=== PATIENT | male | born 1945 | race Caucasian/White ===

== ENCOUNTER → 2018-11-02 | Outpatient (CLI) | payer MEDICARE ==
--- NOTE | 2018-11-02 16:41 | US ---
EXAMINATION TYPE: US kidneys/renal and bladder DATE OF EXAM: 11/02/2018 COMPARISON: NONE CLINICAL HISTORY: R10.9 Right flank pain. rt flank pain for awhile EXAM MEASUREMENTS: Right Kidney: 11.4 x 5.2 x 6.0 cm Left Kidney: 10.3 x 4.7 x 6.1 cm Right Kidney: No hydronephrosis or masses seen Left Kidney: 5.9cm lateral simple cyst Bladder: wnl Bilateral Jets seen: Yes IMPRESSION: 1. Left renal cyst
== END ==
LOC: RADUSWWP 12:27
PROVIDERS: ATTEND Family Medicine
DX: N28.1 Cyst of kidney, acquired (principal); R10.9 Unspecified abdominal pain
CPT/HCPCS: 76770

== ENCOUNTER → 2018-11-25 | Outpatient (CLI) | payer MEDICARE ==
--- NOTE | 2018-11-25 09:24 | CT ---
EXAMINATION TYPE: CT urogram wo/w con DATE OF EXAM: 11/25/2018 COMPARISON: Renal ultrasound dated 11/02/2018 HISTORY: Microhematuria CT DLP: 3847 mGycm, Automated Exposure Control for Dose Reduction was Utilized. CONTRAST: CT scan of the abdomen and pelvis is performed with oral and without and with IV Contrast, patient in jected with 100 mL of Isovue 300. Urogram protocol was utilized with unenhanced, cortical medullary p hase, and delayed imaging obtained at 1 and 4 minutes. 10 and 15 minute delayed images were also obta ined with 3-D reformats of the collecting systems. FINDINGS: LUNG BASES: Minimal subsegmental dependent atelectasis is seen at the lung bases. There is an enlarge d cardiac silhouette and small hiatal hernia also seen. LIVER/GB: No radiopaque calculi are seen on the unenhanced images. There are numerous scattered too s mall to accurately characterize hepatic lesions with the largest measuring 1.1 cm in segment 4A demon strating cystic nature. PANCREAS: The pancreatic tail is slightly bulbous as seen on series 9 image 30 with a questionable le lita measuring 1.6 cm versus bulbous projection of the [place] pancreas. No pancreatic duct enlargemen t. SPLEEN: No significant abnormality is seen. ADRENALS: No significant abnormality is seen. KIDNEYS: The unenhanced images of the kidneys demonstrate a 3 mm nonobstructing left lower pole renal calculus on image 30. An exophytic left 5.1 cm fluid attenuated cyst emanates from the mid to inferi or pole of the left kidney posterior laterally. There is no hydronephrosis of either kidney. No calcu li are seen along the courses of the proximal ureter. On the cortical medullary phase there is no significant enhancement of the left renal cyst. A right s uperior pole 4 mm lesion is seen that is too small to accurately characterize on series 6 image 3 per sisting on delayed imaging. There is also an approximately 4 mm lesion in the right lateral mid pole on delayed imaging and image 40. On the delayed images within the urinary bladder there is posterior impression on the urinary bladder from enlarged and nodular prostate gland. There is approximately one third filling of the urinary bl adder dependently however the urinary bladder is partially obscured by extensive spray artifact from a right femoral arthroplasty. The ureters opacify unremarkably without uroepithelial thickening or obstruction. BOWEL: There is a small hiatal hernia present. The colon is redundant with mild colonic fecal stasis. No dilated large or small bowel. There is slight hyperemia of the duodenum that could relate to virgilio itis or may be an incidental finding. PROSTATE/SEMINAL VESICLES: Enlarged and nodular with impression on the posterior urinary bladder. LYMPH NODES: No greater than 1cm abdominal or pelvic lymph nodes are appreciated. OSSEOUS STRUCTURES: Right femoral arthroplasty is noted creating extensive spray artifact. Evidence o f a prior right hernia repair is seen adjacent to this. There are moderate multilevel degenerative ch anges of the spine. OTHER: There is severe atherosclerosis of the abdominal aorta and its branches with infrarenal slight abdominal aortic ectasia measuring up to 2.7 cm with the proximal abdominal aorta measuring only 2.0 6 cm. IMPRESSION: 1. Solitary nonobstructing 3 mm left lower pole renal calculus. 2. Exophytic simple benign-appearing 5.1 cm left renal cyst. 3. Urinary bladder is partially obscured by extensive spray artifact from the right femoral arthropla sty however nodular impression on the posterior urinary bladder from enlarged prostate gland is seen. 4. Questionable pancreatic tail lesion versus bulbous contour of the ventral pancreatic tail. MRI abd omen pancreatic mass protocol could be performed for further evaluation. 5. Numerous too small to accurately characterize hepatic lesions with the largest 1.1 cm lesion elvira tible with a benign simple cyst. 6. Punctate 3 to 4 mm right renal lesions that are also too small to accurately characterize.
== END | disposition home or self-care (01) ==
LOC: RADCTMAIN 06:35
PROVIDERS: ATTEND Urology
DX: N28.1 Cyst of kidney, acquired (principal); N20.0 Calculus of kidney; N40.0 Benign prostatic hyperplasia without lower urinary tract symptoms; K76.89 Other specified diseases of liver; R93.2 Abnormal findings on diagnostic imaging of liver and biliary tract
CPT/HCPCS: 82565; 84520; 74178; 36415; 74400; Q9967

== ENCOUNTER → 2020-09-10 | Outpatient (CLI) | payer MEDICARE ==
[2020-09-10 12:40] LABS: HCT 52.9 % (39.0-53.0); MCH 32.9 pg (25.0-35.0); MCV 96.8 fL (80.0-100.0); Mean Platelet Volume 7.2; Platelet Count 189 k/uL (150-450); RBC 5.47 m/uL (4.30-5.90); RDW 13.5 % (11.5-15.5); WBC 9.9 k/uL (3.8-10.6)
[2020-09-10 12:46] LABS: INR 1.5 (<1.2); Partial Thromboplastin Time 33.8 sec (22.0-30.0); Prothrombin Time 14.8 sec (9.0-12.0)
[2020-09-10 12:49] LABS: Albumin 4.5 g/dL (3.5-5.0); Calcium 9.4 mg/dL (8.4-10.2); Potassium 3.5 mmol/L (3.5-5.1); Total Protein 7.5 g/dL (6.3-8.2)
[2020-09-10 12:53] LABS: Appearance,Urine Clear (Clear); Bacteria,Urine Moderate /hpf; Bilirubin,Urine Negative (Negative); Blood,Urine Small (Negative); Color,Urine Yellow; Glucose,Urine (UA) Negative (Negative); Ketones,Urine Negative (Negative); Leukocyte Esterase,Urine Trace (Negative); Mucus,Urine Rare /hpf; Nitrite,Urine Negative (Negative); Protein,Urine Negative (Negative); RBC,Urine 10 /hpf (0-5); Specific Gravity,Urine 1.016 (1.001-1.035); Squamous Epithelial Cell,Urine <1 /hpf (0-4); Urobilinogen,Urine <2.0 mg/dL (<2.0); WBC,Urine 3 /hpf (0-5)
== END | disposition home or self-care (01) ==
LOC: LABWHC1 10:58
PROVIDERS: ATTEND Orthopaedic Surgery
DX: Z01.812 Encounter for preprocedural laboratory examination (principal)
CPT/HCPCS: 36415; 80053; 81001; 85027; 85610; 85730; 86850; 86900; 86901; 87070

== ENCOUNTER 2020-09-18 05:39 | Day surgery (SDC) | payer MEDICARE ==
[2020-09-12 13:38] VITALS: BMI 35.9
[~2020-09-18 05:39] MED LIST: ACETAMINOPHEN TAB 500 MG TAB PO PRN; GABAPENTIN 300 MG CAP PO PRN; LACTATED RINGERS 1,000 ML IV SCH; MELOXICAM 7.5 MG TAB PO PRN; ROPIVACAINE 246.25 MG, EPINEPHrine 0.5 MG, KETOROLAC 30 MG, cloNIDine HCL/PF 80 MCG, WA... MISCELLANE PRN; TRANEXAMIC ACID 1,000 MG in SODIUM CHLORIDE 0.9% 100 ML IVPB PRN; ceFAZolin 3 GM in SODIUM CHLORIDE 0.9% 100 ML IVPB PRN
[2020-09-18] MEDS ORDERED: LIDOCAINE 1% (10MG/ML) FOR IV START INTRADERMA ONE (06:24)
[2020-09-18] MEDS: ONDANSETRON 4 MG/2 ML VIAL IVP ONE ×2 (06:24→12:14)
[2020-09-18] MEDS ORDERED: DEXAMETHASONE SOD PHOSPHATE 4 MG/ML 1 ML VIAL IVP ONE (06:26)
[2020-09-18] MEDS ORDERED: MIDAZOLAM 2 MG/2 ML VIAL ONE (06:53)
[2020-09-18] MEDS ORDERED: ROCURONIUM 10 MG/ML (5 ML VIAL) IV ONE (06:53)
[2020-09-18] MEDS ORDERED: GLYCOPYRROLATE 0.2 MG/ML 2 ML VIAL ONE (06:53)
[2020-09-18] MEDS ORDERED: METOPROLOL TARTRATE 5 MG/5 ML VIAL IVP ONE (06:53)
[2020-09-18] MEDS ORDERED: HYDROmorphone (PF) 1 MG/ML ONE (06:53)
[2020-09-18] MEDS ORDERED: PHENYLEPHRINE-0.9% NACL SYG 1,000 MCG/10 ML SYRINGE ONE (06:53)
[2020-09-18] MEDS ORDERED: SUCCINYLCHOLINE CHLORIDE 100 MG/5 ML SYR IV ONE (06:53)
[2020-09-18] MEDS ORDERED: SODIUM CHLORIDE 0.9% 100 ML BAG ONE (06:53)
[2020-09-18] MEDS ORDERED: NEOSTIGMINE 1 MG/ML 10 ML VIAL ONE (06:53)
[2020-09-18] MEDS ORDERED: fentaNYL (PF) 50 MCG/ML 2 ML AMP ONE (06:53)
[2020-09-18] MEDS ORDERED: PROPOFOL 10 MG/ML 20 ML VIAL IV ONE (06:53)
[2020-09-18] MEDS ORDERED: LIDOCAINE 1% INJ 10MG/ML (20 ML MDV) ONE (06:53)
[2020-09-18] MEDS ORDERED: TRANEXAMIC ACID 1,000 MG/10 ML VIAL ONE (06:53)
[2020-09-18] MEDS ORDERED: HYDROmorphone 0.5 MG/0.5 ML SYRINGE IVP PRN ×3 (06:59→07:00)
[2020-09-18] MEDS ORDERED: NALOXONE 0.4 MG/ML 1 ML VIAL IV PRN (06:59)
[2020-09-18] MEDS ORDERED: ONDANSETRON 4 MG/2 ML VIAL IVP PRN (06:59)
[2020-09-18] MEDS ORDERED: HYDROmorphone 0.2 MG/1 ML SYRINGE IVP PRN (06:59)
[2020-09-18] MEDS ORDERED: SODIUM CHLORIDE 0.9% 1,000 ML IV SCH (07:00)
[2020-09-18] MEDS ORDERED: HYDROcodone/APAP 7.5-325MG 1 EACH TAB PO PRN ×2 (07:01)
[2020-09-18] MEDS ORDERED: ceFAZolin 3,000 MG in SODIUM CHLORIDE 0.9% IRRIGATIO 3,000 ML IRRIGATION ONE (08:25)
[2020-09-18] MEDS ORDERED: LACTATED RINGERS 1,000 ML IV ONE (08:25)
--- NOTE | 2020-09-18 08:43 | P.OP ---
Date of Procedure: 09/18/20 Preoperative Diagnosis: severe osteoarthritis left hip Postoperative Diagnosis: severe osteoarthritis left hip Procedure(s) Performed: left total hip arthroplasty with a direct anterior approach Implants: [employer] Polarstem standard size 5 [employer]hew R3, 3 hole hemispherical acetabular shell, 56 mm [employer] Reflection 6.5 mm cancellus screw, 20 mm 2 [employer] R3, XLPE 20 acetabular liner [employer]hew Oxinium femoral head 36 m, +4 All components were press-fit. The articulation is Oxinium on polyethylene. Anesthesia: GETA Surgeon: Crow Jarvis Linux Architect #1: Kanwal Stafford Estimated Blood Loss (ml): 200 (95 mL returned with Cell Saver) Pathology: other (femoral head) Condition: stable Disposition: PACU Indications for Procedure: After failure of conservative treatment we discussed the surgical and nonsurgical treatment options at length. Patient wishes to proceed with a total hip arthroplasty with a direct anterior approach. Complications specific to this procedure were discussed at length, including but not limited to infection, leg length discrepancy, dislocation, nerve injury, and fracture. Covid-19 was also discussed at length with the patient, and they are aware of the current policies and procedures. The patient was given the option of delaying surgery, but they elect to proceed knowing these risks. Patient is aware of all these complications and informed consent was obtained Operative Findings: the operative findings are consistent with severe osteoarthritis of the left hip Description of Procedure: Patient was seen and evaluated in the preoperative area and the consent was reviewed. The operative site was marked with a skin marker. The patient was then brought to the operating room and given preoperative antibiotics intravenously. 1 g of Tranexamic acid was also given intravenously. A Gen. anesthetic was administered by the anesthesia department. The patient was then placed on the [place] table with the bony prominences well-padded. The hip area was then prepped with a ChloraPrep solution and draped in the usual sterile fashion. A universal timeout was then performed, which confirmed the patient's name, surgical site, ALLERGIES, and procedure being performed on the consent. Next the incision site was located at 1 cm distal to the anterior superior iliac spine along the flexion crease of the left hip. The skin and subcutaneous tissues were sharply incised. Incision was carefully dissected down to the fascia overlying the tensor fascia willian muscle. This fascia was then incised in line with the incision. Care was taken to stay laterally in order to avoid injuring the lateral femoral cutaneous nerve. Next, using blunt finger dissection, the tensor fascia willian muscle was dissected off its investing fascia. The muscle was then carefully retracted laterally with a cobra retractor over the lateral neck of the femur. Next, the circumflex vessels were identified and cauterized using the AquaMantis device. The anterior hip capsule was then exposed. The capsule was then opened and an inverted T fashion. Cobra retractors were then placed intracapsularly. The retractors were maintained intracapsular throughout the procedure. The proximal femur was then visualized. A small amount of traction was placed on the leg. The femoral neck was then osteotomized appropriate level above the lesser trochanter. A small wedge of bone was then removed from the remaining femoral head. Next, using a corkscrew the femoral head was removed from the acetabulum. On gross visual inspection, the femoral head had complete loss of articular cartilage and multiple periarticular osteophytes. The femoral head was then measured. Attention was then turned to the acetabulum. The acetabulum was exposed and any remaining labrum was excised. Sequential reaming of the acetabulum was performed using fluoroscopic guidance until there was a good bed of bleeding cancellus bone. When the appropriate size was reached, a trial was then placed. The position and fit of the trial was checked with fluoroscopy. The trial was then removed. Then, using fluoroscopic guidance, the final implant was impacted at 20 of anteversion and 40 of abduction, and fully seated in the acetabulum. 2 screws were then placed in the acetabulum. Again fluoroscopy was used to check position of the screws. Next, the liner was then impacted, with a 20 elevated liner located in the anterior superior quadrant. Component locking was confirmed. Attention was then directed to the femur. With the aid of the [place] table, the femur was externally rotated to approximately 130, extended, and adducted under the opposite leg. A side hook was then placed under the proximal femur, and the side hook elevator was used to elevate the proximal femur while releasing the capsule. Retractors were then placed. A capsular release was performed, as well as a release of the conjoined tendon, which afforded excellent visualization of the proximal femur. Next, a box osteotome was used to lateralize the proximal femur. A hand hide stretcher was then used to locate the femoral canal. Sequential broaching was then performed with appropriate size which afforded excellent fixation in the proximal femur. A trial was then placed with appropriate head and neck, and the hip was gently reduced with the aid of the [place] table. Fluoroscopy was then used to check position of the components, as well as to ensure equal leg lengths. The hip was then gently dislocated and the trials were then removed. Final implants were then impacted and the hip was again reduced. Final fluoroscopic x-rays confirmed that the components were in anatomic position, as well as equal leg lengths. The hip was also taken through range of motion, and found to be stable. The hip was then copiously irrigated with antibiotic solution with pulsatile lavage. The hip was then irrigated with Irrisept solution. The soft tissues were then injected with a ropivacaine solution, which consisted of 246.25 mg of ropivacaine, 0.5 mg of epinephrine, 30 mg of Toradol, 80 g of clonidine, and 48.45 mL of sterile water, for a total of 100 mL of fluid injected. A second dose of 1 g of Tranexamic acid was also given intravenously. Any blood collected by Cell Saver was then returned to the patient at this time. The fascia was then closed with 2-0 strata fix suture. The subcutaneous tissue was closed with 3-0 Vicryl. The subcuticular tissue was closed with 3-0 strata fix suture. The skin was then closed with Exofin skin glue. After the glue and dried, and Optifoam silver impregnated dressing was applied. The patient was then transferred to the recovery room in stable condition. The music library assistant STACI Cox was required due to the complexity of surgery, and the need for skilled human resource assistant for positioning, draping, exposure, retraction, and closure of the wound.
[2020-09-18 08:57] VITALS: TEMP 97.4
--- NOTE | 2020-09-18 08:57 | FL ---
EXAMINATION TYPE: FL guidance operating room, XR Hip Limited LT DATE OF EXAM: 09/18/2020 CLINICAL HISTORY: Left hip pain and osteoarthritis. TECHNIQUE: Fluoroscopy. Intraoperative limited views left hip. COMPARISON: None. FINDINGS: Fluoroscopic guidance was provided during left hip replacement procedure performed by Dr. Jarvis. A total of 15 seconds of fluoroscopic time was utilized during the procedure and 2 spot im ages was acquired. Intraoperative images acquired show metallic hardware from total left hip arthroplasty satisfactory i n position on frontal projection. IMPRESSION: As Above.
[2020-09-18] MEDS: HYDROmorphone 1 MG/ML 1 ML SYRINGE IVP ONE ×2 (09:02→09:07)
--- NOTE | 2020-09-18 09:08 | XR ---
EXAMINATION TYPE: XR Hip Limited LT DATE OF EXAM: 09/18/2020 CLINICAL HISTORY: Left hip pain and osteoarthritis. TECHNIQUE: Single AP portable view of left hip is obtained immediately postoperatively. COMPARISON: None. FINDINGS: Metallic hardware from left hip arthroplasty is seen and appears satisfactory in alignment and position. There is evidence of recent surgery with subcutaneous gas noted surrounding prosthesis . IMPRESSION: Metallic hardware from left hip arthroplasty is satisfactory in position.
[2020-09-18] MEDS: fentaNYL (PF) 50 MCG/ML 2 ML AMP IV PRN ×3 (09:15→09:25)
[2020-09-18 14:04] VITALS: BP 114/73; PULSE 74; RESP 14
[2020-09-18] MEDS ORDERED: ceFAZolin 3 GM in SODIUM CHLORIDE 0.9% 100 ML IVPB SCH (15:00)
== END 2020-09-18 15:13 | disposition home health service (06) ==
LOC: OR 05:39
PROVIDERS: ATTEND Orthopaedic Surgery
DX: M16.12 Unilateral primary osteoarthritis, left hip (principal); I11.9 Hypertensive heart disease without heart failure; E05.00 Thyrotoxicosis with diffuse goiter without thyrotoxic crisis or storm; E78.5 Hyperlipidemia, unspecified; H26.9 Unspecified cataract; R26.81 Unsteadiness on feet; Z96.651 Presence of right artificial knee joint; Z96.641 Presence of right artificial hip joint; Z83.3 Family history of diabetes mellitus; Z82.49 Family history of ischemic heart disease and other diseases of the circulatory system; I48.91 Unspecified atrial fibrillation; N40.0 Benign prostatic hyperplasia without lower urinary tract symptoms; H40.9 Unspecified glaucoma; Z79.01 Long term (current) use of anticoagulants
CPT/HCPCS: 97110; 97161; 73501; 27130; J0171; J1100; J0690 ×2; J2405; J3010; J1885; J1170; J2795; J0735; J1790; 86850; 86891; 86900; 86901; 88300

== ENCOUNTER 2020-11-01 20:11 | Emergency (ER) | payer MEDICARE ==
[2020-11-01 20:17] VITALS: RESP 18; TEMP 98.1
[2020-11-01] MEDS ORDERED: IPRATROPIUM-ALBUTEROL 3 ML NEB INHALATION STA (20:38)
--- NOTE | 2020-11-01 20:52 | ED ---
SOB HPI - General Chief Complaint: Shortness of Breath Stated Complaint: Covid+ Time Seen by Provider: 11/01/20 20:24 Source: patient, EMS Mode of arrival: EMS Limitations: no limitations - History of Present Illness Initial Comments: 75-year-old male with history of hypertension, dyslipidemia, A. fib, Graves' disease presents to emergency Department with a chief complaint of covid-19d and shortness of breath. Patient reports he tested +7 days ago but he had symptoms 3 days prior today. Patient reports yesterday he received a BAM infusion and his symptoms are not improving. Patient reports his symptoms are fluctuating along with this heart rate and pulse ox. However, is not able to give me exact numbers. Also reports taking steroids, albuterol inhaler for the last 7 days, again no improvement in symptoms. Patient states his anxiety is really high along with decreased appetite but no nausea or vomiting or diarrhea. He also reports wheezing and a cough but he is a smoker. He does report exertional dyspnea but denies any associated chest pain, lightheadedness or dizziness. He does report generalized fatigue and myalgias. - Related Data Home Medications Medication Instructions Recorded Confirmed Atenolol 50 mg PO DAILY 06/20/14 11/01/20 Simvastatin [Zocor] 20 mg PO HS 06/20/14 11/01/20 Triamterene-Hctz 37.5-25Mg 1 cap PO DAILY 06/20/14 11/01/20 [Dyazide 37.5-25 Capsule] Levothyroxine Sodium [Synthroid] 175 mcg PO DAILY 09/12/20 11/01/20 Meloxicam [Mobic] 7.5 mg PO BID 09/12/20 11/01/20 Rivaroxaban [Xarelto] 20 mg PO DAILY 09/12/20 11/01/20 Tamsulosin [Flomax] 0.4 mg PO DAILY 09/12/20 11/01/20 Albuterol Inhaler [Ventolin Hfa 2 puff INHALATION RT-Q6H PRN 11/01/20 11/01/20 Inhaler] Bimatoprost [Lumigan .01% Ophth 1 drop LEFT EYE HS 11/01/20 11/01/20 Soln] Cholecalciferol [Vitamin D3 (25 50 mcg PO DAILY 11/01/20 11/01/20 Mcg = 1000 Iu)] Finasteride [Proscar] 5 mg PO DAILY 11/01/20 11/01/20 Zinc 50 mg PO DAILY 11/01/20 11/01/20 dexAMETHasone [Dexamethasone] 6 mg PO DAILY 11/01/20 11/01/20 Previous Rx's Medication Instructions Recorded Nitrofurantoin Monohyd/M-Cryst 100 mg PO Q12HR #14 cap 11/01/20 [Macrobid] Allergies Allergy/AdvReac Type Severity Reaction Status Date / Time No Known Allergies Allergy Verified 11/01/20 22:10 Review of Systems ROS Statement: Those systems with pertinent positive or pertinent negative responses have been documented in the HPI. ROS Other: All systems not noted in ROS Statement are negative. Past Medical History Past Medical History: Atrial Fibrillation, Hyperlipidemia, Hypertension, Osteoarthritis (OA), Thyroid Disorder Additional Past Medical History / Comment(s): HX HYPERTHYROID D/T GRAVES DISEASE, BPH. History of Any Multi-Drug Resistant Organisms: None Reported Past Surgical History: Hernia Repair, Joint Replacement, Orthopedic Surgery Additional Past Surgical History / Comment(s): Total R knee(2014)., Total Right Hip (2016).,BRONCHOSCOPY,LT INGUINAL HERNIA REPAIR, EYE MUSCLE AND EYE LID SURGERY (HX OF DOUBLE VISION & BULDGING EYES)., Right knee arthroscopy. Past Anesthesia/Blood Transfusion Reactions: Previous Problems w/ Anesthesia Additional Past Anesthesia/Blood Transfusion Reaction / Comment(s): B/P and heart rate went very high with eye surgery- pt states 20 yrs ago and he does not remember. Past Psychological History: No Psychological Hx Reported Smoking Status: Current some day smoker Past Alcohol Use History: Rare Past Drug Use History: None Reported - Past Family History Mother Family Medical History: Diabetes Mellitus Additional Family Medical History / Comment(s): breathing problems,obesity Father Additional Family Medical History / Comment(s): killed traumatic accident Brother(s) Family Medical History: Cancer Additional Family Medical History / Comment(s): Brother at age 60 of small cell lung CA General Exam Limitations: no limitations General appearance: alert, in no apparent distress, anxious, obese Head exam: Present: atraumatic, normocephalic, normal inspection Eye exam: Present: normal appearance, PERRL, EOMI Pupils: Present: normal accommodation ENT exam: Present: normal exam, normal oropharynx, mucous membranes moist, TM's normal bilaterally, normal external ear exam Neck exam: Present: normal inspection, full ROM. Absent: tenderness Respiratory exam: Present: wheezes (Diffuse bilateral wheezing). Absent: normal lung sounds bilaterally, respiratory distress, rales, rhonchi, stridor, chest wall tenderness, accessory muscle use Cardiovascular Exam: Present: regular rate, normal rhythm, normal heart sounds. Absent: systolic murmur, diastolic murmur GI/Abdominal exam: Present: soft. Absent: distended, tenderness, guarding, rebound Extremities exam: Present: normal inspection, full ROM, normal capillary refill. Absent: tenderness, pedal edema, joint swelling Back exam: Present: normal inspection, full ROM. Absent: tenderness, CVA tenderness (R), CVA tenderness (L) Neurological exam: Present: alert, oriented X3 Psychiatric exam: Present: normal affect, normal mood, anxious Skin exam: Present: warm, dry, intact, normal color Course Vital Signs 11/01/20 11/01/20 11/01/20 20:13 20:49 20:52 Temperature 98.1 F Pulse Rate 72 86 Respiratory 18 18 Rate Blood Pressure 154/100 O2 Sat by Pulse 98 Oximetry 11/01/20 11/01/20 11/01/20 20:59 21:17 22:29 Temperature Pulse Rate 86 77 Respiratory 18 Rate Blood Pressure 118/60 O2 Sat by Pulse 96 98 Oximetry 11/01/20 23:45 Temperature Pulse Rate 91 Respiratory 18 Rate Blood Pressure 113/60 O2 Sat by Pulse 98 Oximetry Medical Decision Making - Medical Decision Making 75-year-old male with history of hypertension, dyslipidemia, A. fib, Graves' disease presents to emergency Department with a chief complaint of c covid-19 and shortness of breath. On physical examination, patient does not appear to be in any respiratory distress. He is slightly anxious. Mild bilateral diffuse wheezing. Vital signs are within normal limits. Oxygen saturation within normal limits on room air. CBC revealed leukocytosis of 18.1 K. UA was ordered which showed a urinary tract infection with elevated white blood cells, leukocyte esterase and positive nitrates. CMP also revealed hypokalemia with a potassium of 3.3. He was given 40 mEq of Iram Dur. Slight elevation of BUN to 31 compared to his most recent of 27, likely secondary to decreased oral intake with appetite. Coags within normal limits. Slight elevation in d-dimer 0.62 but this is within normal limits when age-adjusted. Patient was given 1 g Rocephin and will be discharged with Macrobid. Urine culture pending. Patient was advised to follow with his primary care physician. Strict return parameters were thoroughly discussed the patient is understanding and agreeable. Case discussed with - Lab Data Result diagrams: 11/01/20 20:39 11/01/20 20:39 Lab Results 11/01/20 11/01/20 11/01/20 Range/Units 20:39 20:39 20:39 WBC 18.6 H (3.8-10.6) k/uL RBC 5.15 (4.30-5.90) m/uL Hgb 16.4 (13.0-17.5) gm/dL Hct 48.5 (39.0-53.0) % MCV 94.2 (80.0-100.0) fL MCH 31.8 (25.0-35.0) pg MCHC 33.8 (31.0-37.0) g/dL RDW 13.8 (11.5-15.5) % Plt Count 167 (150-450) k/uL MPV 8.0 Neutrophils % 95 % Lymphocytes % 1 % Monocytes % 2 % Eosinophils % 0 % Basophils % 1 % Neutrophils # 17.7 H (1.3-7.7) k/uL Lymphocytes # 0.2 L (1.0-4.8) k/uL Monocytes # 0.4 (0-1.0) k/uL Eosinophils # 0.1 (0-0.7) k/uL Basophils # 0.1 (0-0.2) k/uL PT 11.1 (9.0-12.0) sec INR 1.0 (<1.2) APTT 27.0 (22.0-30.0) sec D-Dimer 0.62 H (<0.60) mg/L FEU Sodium 136 L (137-145) mmol/L Potassium 3.3 L (3.5-5.1) mmol/L Chloride 100 (98-107) mmol/L Carbon Dioxide 24 (22-30) mmol/L Anion Gap 12 mmol/L BUN 31 H (9-20) mg/dL Creatinine 1.01 (0.66-1.25) mg/dL Est GFR (CKD-EPI)AfAm 84 (>60 ml/min/1.73 sqM) Est GFR (CKD-EPI)NonAf 73 (>60 ml/min/1.73 sqM) Glucose 112 H (74-99) mg/dL Plasma Lactic Acid Aidan (0.7-2.0) mmol/L Calcium 8.7 (8.4-10.2) mg/dL Magnesium 1.7 (1.6-2.3) mg/dL Total Bilirubin 0.9 (0.2-1.3) mg/dL AST 34 (17-59) U/L ALT 36 (4-49) U/L Alkaline Phosphatase 68 (38-126) U/L Lactate Dehydrogenase 582 (313-618) U/L C-Reactive Protein 6.4 H (<1.0) mg/dL Total Protein 7.2 (6.3-8.2) g/dL Albumin 4.2 (3.5-5.0) g/dL Urine Color Urine Appearance (Clear) Urine pH (5.0-8.0) Ur Specific [place] (1.001-1.035) Urine Protein (Negative) Urine Glucose (UA) (Negative) Urine Ketones (Negative) Urine Blood (Negative) Urine Nitrite (Negative) Urine Bilirubin (Negative) Urine Urobilinogen (<2.0) mg/dL Ur Leukocyte Esterase (Negative) Urine RBC (0-5) /hpf Urine WBC (0-5) /hpf Ur Squamous Epith Cells (0-4) /hpf Urine Bacteria (None) /hpf Urine Mucus (None) /hpf 11/01/20 11/01/20 Range/Units 20:39 22:20 WBC (3.8-10.6) k/uL RBC (4.30-5.90) m/uL Hgb (13.0-17.5) gm/dL Hct (39.0-53.0) % MCV (80.0-100.0) fL MCH (25.0-35.0) pg MCHC (31.0-37.0) g/dL RDW (11.5-15.5) % Plt Count (150-450) k/uL MPV Neutrophils % % Lymphocytes % % Monocytes % % Eosinophils % % Basophils % % Neutrophils # (1.3-7.7) k/uL Lymphocytes # (1.0-4.8) k/uL Monocytes # (0-1.0) k/uL Eosinophils # (0-0.7) k/uL Basophils # (0-0.2) k/uL PT (9.0-12.0) sec INR (<1.2) APTT (22.0-30.0) sec D-Dimer (<0.60) mg/L FEU Sodium (137-145) mmol/L Potassium (3.5-5.1) mmol/L Chloride (98-107) mmol/L Carbon Dioxide (22-30) mmol/L Anion Gap mmol/L BUN (9-20) mg/dL Creatinine (0.66-1.25) mg/dL Est GFR (CKD-EPI)AfAm (>60 ml/min/1.73 sqM) Est GFR (CKD-EPI)NonAf (>60 ml/min/1.73 sqM) Glucose (74-99) mg/dL Plasma Lactic Acid Aidan 2.0 (0.7-2.0) mmol/L Calcium (8.4-10.2) mg/dL Magnesium (1.6-2.3) mg/dL Total Bilirubin (0.2-1.3) mg/dL AST (17-59) U/L ALT (4-49) U/L Alkaline Phosphatase (38-126) U/L Lactate Dehydrogenase (313-618) U/L C-Reactive Protein (<1.0) mg/dL Total Protein (6.3-8.2) g/dL Albumin (3.5-5.0) g/dL Urine Color Light Yellow Urine Appearance Cloudy (Clear) Urine pH 6.5 (5.0-8.0) Ur Specific [place] 1.009 (1.001-1.035) Urine Protein 1+ H (Negative) Urine Glucose (UA) Negative (Negative) Urine Ketones Negative (Negative) Urine Blood Moderate H (Negative) Urine Nitrite Positive (Negative) Urine Bilirubin Negative (Negative) Urine Urobilinogen <2.0 (<2.0) mg/dL Ur Leukocyte Esterase Large H (Negative) Urine RBC 4 (0-5) /hpf Urine WBC 86 H (0-5) /hpf Ur Squamous Epith Cells <1 (0-4) /hpf Urine Bacteria Few H (None) /hpf Urine Mucus Rare H (None) /hpf - EKG Data EKG Comments: A. fib Ventricular rate 80, QRS 84, QTc 359. Disposition Clinical Impression: Urinary tract infection, COVID-19 Disposition: HOME SELF-CARE Condition: Stable Instructions (If sedation given, give patient instructions): Urinary Tract Infection in Men (DC) Additional Instructions: Take prescribed medication as directed. Follow with the primary care physician. Return to emergency department if symptoms worsen. Prescriptions: Nitrofurantoin Monohyd/M-Cryst [Macrobid] 100 mg PO Q12HR #14 cap Is patient prescribed a controlled substance at d/c from ED?: No Referrals: Amy Ramirez MD [Primary Care Provider] - 1-2 days Time of Disposition: 23:04
[2020-11-01 21:08] LABS: Albumin 4.2 g/dL (3.5-5.0); C Reactive Protein 6.4 mg/dL (<1.0); Calcium 8.7 mg/dL (8.4-10.2); Magnesium 1.7 mg/dL (1.6-2.3); Potassium 3.3 mmol/L (3.5-5.1); Total Bilirubin 0.9 mg/dL (0.2-1.3); Total Protein 7.2 g/dL (6.3-8.2)
--- NOTE | 2020-11-01 21:10 | XR ---
EXAMINATION TYPE: XR chest 1V portable DATE OF EXAM: 11/01/2020 COMPARISON: 06/13/2014 HISTORY: Pneumonia. TECHNIQUE: FINDINGS: There is no heart failure nor confluent pneumonic infiltrate. There is slight coarsening of interstitial markings. There are no hilar masses. Costophrenic angles are clear. IMPRESSION: Minimal pulmonary fibrotic changes increased compared to old exam. No heart failure.
[2020-11-01 21:14] LABS: Prothrombin Time 11.1 sec (9.0-12.0)
[2020-11-01] MEDS ORDERED: POTASSIUM CHLORIDE ER 20 MEQ TAB.ER PO STA (21:27)
[2020-11-01 21:40] LABS: D-Dimer 0.62 mg/L FEU (<0.60)
[2020-11-01 21:49] LABS: Basophils # (A) 0.1 k/uL (0-0.2); Basophils % (A) 1 %; Eosinophils # (A) 0.1 k/uL (0-0.7); Eosinophils % (A) 0 %; HCT 48.5 % (39.0-53.0); HGB 16.4 gm/dL (13.0-17.5); Lymphocytes # (A) 0.2 k/uL (1.0-4.8); Lymphocytes % (A) 1 %; MCH 31.8 pg (25.0-35.0); MCHC 33.8 g/dL (31.0-37.0); MCV 94.2 fL (80.0-100.0); Monocytes # (A) 0.4 k/uL (0-1.0); Monocytes % (A) 2 %; Neutrophils # (A) 17.7 k/uL (1.3-7.7); Neutrophils % (A) 95 %; Platelet Count 167 k/uL (150-450); RBC 5.15 m/uL (4.30-5.90); RDW 13.8 % (11.5-15.5); WBC 18.6 k/uL (3.8-10.6)
[2020-11-01 22:40] LABS: Appearance,Urine Cloudy (Clear); Bacteria,Urine Few /hpf; Bilirubin,Urine Negative (Negative); Blood,Urine Moderate (Negative); Color,Urine Light Yellow; Glucose,Urine (UA) Negative (Negative); Ketones,Urine Negative (Negative); Leukocyte Esterase,Urine Large (Negative); Mucus,Urine Rare /hpf; Nitrite,Urine Positive (Negative); PH, Urine 6.5 (5.0-8.0); Protein,Urine 1+ (Negative); RBC,Urine 4 /hpf (0-5); Specific Gravity,Urine 1.009 (1.001-1.035); Squamous Epithelial Cell,Urine <1 /hpf (0-4); Urobilinogen,Urine <2.0 mg/dL (<2.0); WBC,Urine 86 /hpf (0-5)
[2020-11-01] MEDS ORDERED: cefTRIAXone IN SWFI 1,000 MG/10 ML SYRINGE IVP STA (23:02)
[2020-11-01 23:46] VITALS: BP 113/60; PULSE 91
[2020-11-02 12:00] LABS: Ferritin 353.9 ng/mL (22.0-322.0)
== END 2020-11-01 23:46 | disposition home or self-care (01) ==
LOC: EC 20:11
DX: U07.1 COVID-19 (principal); N39.0 Urinary tract infection, site not specified; I48.91 Unspecified atrial fibrillation; I10 Essential (primary) hypertension; E78.5 Hyperlipidemia, unspecified; N40.0 Benign prostatic hyperplasia without lower urinary tract symptoms; F17.200 Nicotine dependence, unspecified, uncomplicated; Z79.52 Long term (current) use of systemic steroids; Z79.899 Other long term (current) drug therapy; Z79.1 Long term (current) use of non-steroidal anti-inflammatories (NSAID); F41.9 Anxiety disorder, unspecified
CPT/HCPCS: 36415; 93005; 85379; 80053; 82728; 83605; 83615; 83735; 85025; 85610; 85730; 86140; 81001; 87086; 87077; 87186; 84145; 71045; 99285; 96374; J0696

== ENCOUNTER → 2020-12-10 | Outpatient (CLI) | payer MEDICARE | END | disposition home or self-care (01) | LOC: LABWHC1 15:14 | PROVIDERS: ATTEND Family Medicine | DX: E03.9 Hypothyroidism, unspecified (principal); F41.9 Anxiety disorder, unspecified; N39.0 Urinary tract infection, site not specified; Z86.16 Personal history of COVID-19 | CPT/HCPCS: 36415; 82140 ==